=== PATIENT | male | born 1985 | race Caucasian/White ===

== ENCOUNTER → 2020-09-13 | Outpatient (CLI) | payer OTHER ==
--- NOTE | 2020-09-13 15:47 | CT ---
EXAMINATION TYPE: CT angio chest DATE OF EXAM: 09/13/2020 COMPARISON: None HISTORY: SOB, I 26.99 CT DLP: 552 mGycm Automated exposure control for dose reduction was used. CONTRAST: CTA scan of the thorax is performed with IV Contrast, patient injected with 73cc mL of Isovue 370, pu lmonary embolism protocol. MIP images are created and reviewed. 3D reconstructed images are created on an independent workstation and reviewed. FINDINGS: LUNGS: The lungs are grossly clear, there is no concerning parenchymal mass or nodule identified. Pne umatocele is present on axial image 56 measuring 12 mm. There is no pleural effusion or pneumothorax seen. The tracheobronchial tree is patent. AORTA: No additional significant abnormality is seen. MEDIASTINUM: There is satisfactory enhancement of the pulmonary artery and its branches, there is no CT evidence for pulmonary embolism. There are no greater than 1 cm hilar or mediastinal lymph nodes. No pericardial effusion is seen. OTHER: Fat mass is associated with the left adrenal gland measures 5.3 cm in AP dimension by 5.2 cm in transverse by 5 cm in cephalad to caudal dimension. Minimal associated soft tissue is present with in the mass. 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 There is thoracic spondylosis. IMPRESSION: NO PULMONARY EMBOLISM. INCIDENTAL BENIGN-APPEARING LEFT ADRENAL MASS. SMALL PNEUMATOCELE RIGHT LUNG.
== END | disposition home or self-care (01) ==
LOC: RADCTMAIN 14:39
PROVIDERS: ATTEND Family Medicine
DX: J98.4 Other disorders of lung (principal)
CPT/HCPCS: 71275; Q9967